=== PATIENT | female | born 1990 | race Caucasian/White ===

== ENCOUNTER 2020-06-02 08:35 | Outpatient (REF) | payer OTHER, SELFPAY ==
[2020-06-02 11:57] LABS: Alanine Aminotransferase 24 U/L (0-31); Albumin Level 4.4 g/dL (3.5-5.0); Alkaline Phosphatase 131 U/L (39-117); Anion Gap 13 (12-20); Aspartate Amino Transferase 21 U/L (5-31); Bilirubin Total 0.6 mg/dL (0.0-1.0); Blood Urea Nitrogen 17 mg/dL (9-16); Calcium 9.1 mg/dL (8.4-10.2); Carbon Dioxide 27 mmol/L (22-29); Chloride 106 mmol/L (96-108); Cholesterol 187 mg/dL; Estimated Glomerular Filt Rate > 60; Glucose Fasting 85 mg/dL (60-99); HDL Cholesterol 61 mg/dL; LDL Cholesterol Calculated 117 mg/dl; Sodium 142 mmol/L (135-145); Total Protein 6.9 g/dL (6.5-8.0); Triglycerides 45 mg/dL
== END 2020-06-02 08:36 | disposition home or self-care (01) ==
LOC: HO.HMGCLDS 08:35
PROVIDERS: PCP Nurse Practitioner Family; Visit Provider Nurse Practitioner Family
DX: E78.5 Hyperlipidemia, unspecified (principal); R79.89 Other specified abnormal findings of blood chemistry
CPT/HCPCS: 36415; 80053; 80061; 84443

== ENCOUNTER 2021-12-29 07:48 | Outpatient (REF) | payer OTHER, SELFPAY ==
[2021-12-31 09:06] LABS: Lyme Abs Screen <0.90 index
== END 2021-12-29 07:49 | disposition home or self-care (01) ==
LOC: HO.HMGCLDS 07:48
PROVIDERS: Visit Provider Internal Medicine
DX: T14.8XXA Other injury of unspecified body region, initial encounter (principal); W57.XXXA Bitten or stung by nonvenomous insect and other nonvenomous arthropods, initial encounter
CPT/HCPCS: 36415; 86617; 86618

== ENCOUNTER 2022-10-05 07:18 | Outpatient (REF) | payer OTHER, SELFPAY ==
[2022-10-05 11:24] LABS: Appearance Urine Clear; Color Urine Yellow; Glucose Urine UA Negative (Negative); Leukocyte Esterase Urine Negative (Negative); Nitrite Urine Positive (Negative); Specific Gravity - Urine 1.025 (1.005-1.025); UMIC TRIGGER UACC YES; Urine Blood Negative (Negative); Urine Ketones Negative (Negative); Urine Protein Negative (Neg-Trace)
[2022-10-05 11:27] LABS: MANUAL DIFF FLAG NO
[2022-10-05 11:37] LABS: Basophils Percent Auto 0.5 % (0-2); Eosinophils Absolute Auto 0.3 X10*3/uL (0.0-0.4); Eosinophils Percent Auto 4.3 % (0-4); Hematocrit 44.4 % (37.0-47.0); Hemoglobin 14.8 g/dl (12.0-16.0); Imm Gran Abs Auto 0.02 X10*3/uL (0.00-0.03); Imm Gran Pct Auto 0.3 % (0.0-0.4); Lymphocytes Absolute Auto 2.9 X10*3/uL (1.2-4.9); Lymphocytes Percent Auto 39.2 % (20-40); Mean Corpuscular HGB Conc 33.3 g/dl (31.0-35.0); Mean Corpuscular Hemoglobin 28.9 pg (27.0-33.0); Mean Corpuscular Volume 86.7 fL (80.0-98.0); Mean Platelet Volume 9.8 fL (9.4-12.3); Monocytes Absolute Auto 0.6 X10*3/uL (0.1-1.2); Monocytes Percent Auto 7.6 % (2-11); Neutrophils Absolute Auto 3.5 x10*3/uL (2.0-8.3); Neutrophils Percent Auto 48.1 % (45-73); Platelet Count 272 X10*3/uL (160-400); Red Blood Count 5.12 X10*6/uL (4.20-5.50); Red Cell Distribution Width 13.2 % (11.0-16.0); White Blood Count 7.4 X10*3/uL (4.8-10.8)
[2022-10-05 11:46] LABS: Bacteria Urine Trace (None Seen); Hyaline Casts Urine 0-2 /LPF (0-2); RBC Urine 0-2 /HPF (0-2); UACC Culture Trigger YES
[2022-10-05 11:58] LABS: Alanine Aminotransferase 22 U/L (0-31); Albumin Level 4.1 g/dL (3.5-5.0); Alkaline Phosphatase 80 U/L (39-117); Anion Gap 14 (12-20); Aspartate Amino Transferase 22 U/L (5-31); Bilirubin Total 0.6 mg/dL (0.0-1.0); Blood Urea Nitrogen 15 mg/dL (9-16); Calcium 9.1 mg/dL (8.4-10.2); Carbon Dioxide 23 mmol/L (22-29); Chloride 108 mmol/L (96-108); Cholesterol 208 mg/dL; Estimated Glomerular Filt Rate > 60; Gamma Glutamyl Transpeptidase 25 U/L (7-33); Glucose Fasting 107 mg/dL (60-99); HDL Cholesterol 56 mg/dL; LDL Cholesterol Calculated 135 mg/dl; Potassium 4.2 mmol/L (3.3-5.1); Sodium 141 mmol/L (135-145); Total Protein 6.5 g/dL (6.5-8.0); Triglycerides 88 mg/dL
[2022-10-09 05:38] LABS: Alk.Phos Iso. Macrohepatic 0 % (<=0); Alk.Phos Isoenzymes Bone 26 % (28-66); Alk.Phos Isoenzymes Intest 0 % (1-24); Alk.Phos Isoenzymes Liver 74 % (25-69); Alk.Phos Isoenzymes Placental 0 % (<=0); Alk.Phos Isoenzymes Total 71 U/L (31-125)
== END 2022-10-05 07:19 | disposition home or self-care (01) ==
LOC: HO.HMGCLDS 07:18
PROVIDERS: Internal Medicine; PCP Nurse Practitioner Family; Visit Provider Nurse Practitioner Family
DX: Z00.00 Encounter for general adult medical examination without abnormal findings (principal); R74.8 Abnormal levels of other serum enzymes; N39.0 Urinary tract infection, site not specified
CPT/HCPCS: 36415; 80053; 80061; 81001; 82977; 84080; 84443; 85025; 87086; 87088; 87186

== ENCOUNTER 2022-10-08 08:48 | Outpatient (REF) | payer OTHER, SELFPAY ==
[2022-10-08 11:35] LABS: Appearance Urine Cloudy; Color Urine Yellow; Glucose Urine UA Negative (Negative); Leukocyte Esterase Urine Trace (Negative); Nitrite Urine Negative (Negative); Specific Gravity - Urine 1.025 (1.005-1.025); UMIC TRIGGER UACC YES; Urine Blood Negative (Negative); Urine Ketones 15 mg/dL (Negative); Urine Protein Negative (Neg-Trace)
[2022-10-08 11:39] LABS: Bacteria Urine Trace (None Seen); Hyaline Casts Urine 0-2 /LPF (0-2); RBC Urine 0-2 /HPF (0-2); UACC Culture Trigger YES
== END 2022-10-08 08:49 | disposition home or self-care (01) ==
LOC: HO.HMGCLDS 08:48
PROVIDERS: PCP Nurse Practitioner Family; Visit Provider Internal Medicine
DX: N39.0 Urinary tract infection, site not specified (principal)
CPT/HCPCS: 81001; 87086

== ENCOUNTER 2023-04-05 08:49 | Outpatient (AMB) | payer OTHER, SELFPAY ==
[2023-04-05 09:17] VITALS: BP 120/72; PULSE 83; O2SAT 99; BMI 36.2
--- NOTE | 2023-04-05 09:17 | A.OFFPC_ITS ---
Vital Signs 04/05/23 09:17 Height 5 ft 3 in Weight 204 lb 4 oz BMI 36.2 BP 120/72 Blood Pressure Location Lt brachial Position Sitting Pulse 83 Pulse Source Pulse Oximeter Pulse Oximetry (%) 99 Oxygen Delivery Method Room Air Intake Visit Reasons: Annual PE Allergies No Known Allergies [No Known Allergies*] Allergy (Verified 04/05/23 09:19) Tobacco use date assessed: 04/05/23 Dental Screening Dental Screen Date: 04/05/23 Did you have a dental visit in the last 12 months?: Yes Did you have a dental problem in the last 6 months where you did not have access to dental care?: No Was dental information given to patient?: Patient has dentist HPI Annual PE HPI Details Pt is here for a PE. Will order labs. Has a color maker. Pt is currently 17 weeks . PFSH Medical History Elevated alkaline phosphatase level Family History Father Mental health disorder Mother Mental health disorder Social History Housing: House Patient Tobacco Use Status: Never used Tobacco e-Cigarette/Vaping Use: Never Used Second Hand Smoke Exposure: No service: No Current occupational status: unemployed Cognitive needs: No Hearing needs: No Vision needs: No Questionnaire Thrive Questionnaire Date Thrive assessed: 06/16/22 I am a: Patient What is your living situation today?: I have a steady place to live Within the past 12 months, did the food you bought not last and you didn't have the money to get more?: Never true Within the past 12 months, did you worry whether your food would run out before you got money to buy more?: Never true AUDIT C Alcohol Use Questionnaire (AUDIT-C) 1. How often do you have a drink containing alcohol?: Never 2. How many drinks containing alcohol do you have on a typical day when you are drinking?: 1 or 2 3. How often do you have six or more drinks on one occasion?: Never Total Score: 0 ANNALEE-7 AMB Questionnaire ANNALEE-7 Date ANNALEE - 7 assessed: 06/16/22 Feeling nervous, anxious, or on edge: 1 = Several days Not being able to stop or control worryin = Not at all Worrying too much about different things: 0 = Not at all Trouble relaxin = Not at all Being so restless that it is hard to sit still: 0 = Not at all Becoming easily annoyed or irritable: 0 = Not at all Feeling afraid as if something awful might happen: 0 = Not at all Total ANNALEE-7 score (0-4 normal; 5-9 mild; 10-14 moderate; 15-21 severe): 1 Source: Developed by Drs. Tyrone Chavarria, Margarita Yusuf, Dre Espana and colleagues, with an educational cecily from [employer]. Review of Systems Const Denies chills and Denies fever(s) Eyes Denies blurry vision ENT Denies vertigo, Denies dizziness and Denies sore throat Card Denies chest pain at rest, Denies chest pain with activity, Denies diaphoresis, Denies dyspnea and Denies dyspnea on exertion Resp Denies cough, Denies dyspnea, Denies dyspnea on exertion and Denies wheezing GI Denies abdominal pain, Denies melena, Denies hematochezia, Denies constipation, Denies diarrhea and Denies loose stools Denies hematuria Musc Denies numbness and Denies tingling Skin/Breast Denies lesions Neuro Denies vertigo, Denies dizziness, Denies numbness and Denies tingling Psych Denies anxiety, Denies depression, Denies homicidal ideation, Denies suicidal ideation and Denies other (substance abuse) Aller/Immun Denies wheezing Physical exam (Primary Care) Vital Signs: Last Vital Signs Pulse 83 04/05/23 09:17 BP 120/72 04/05/23 09:17 Pulse Ox 99 04/05/23 09:17 Oxygen Delivery Method Room Air 04/05/23 09:17 BMI result Body Mass Index 36.2 Tobacco/Smoking Status: Tobacco use Status Tobacco use date assessed 04/05/23 04/05/23 09:21 Patient Tobacco Use Status Never used Tobacco 04/05/23 09:21 e-Cigarette/Vaping Use Never Used 04/05/23 09:21 Thrive Assessment: Date of Thrive Assessment Date Thrive assessed 06/16/22 04/05/23 09:21 Const General: cooperative Nutritional Appearance: well nourished Orientation/consciousness: patient oriented x3 HENMT Head: Yes normal to inspection, Yes normocephalic and Yes atraumatic Ears: TM's normal bilaterally Eyes General: appearance normal, both eyes and all related structures Alignment and Position: alignment normal and position normal Neck Neck: Yes normal visual inspection and Yes no lymphadenopathy Thyroid: Thyroid normal Resp Effort & Inspection: normal respiratory effort Auscultation: clear to auscultation bilaterally Cardio Rate: regular rate Rhythm: regular rhythm Heart sounds: S1 normal heart sound present, S2 normal heart sound present and Murmur heart sound present systolic GI Palpation (GI): Soft to palpation and nontender Auscultation: normal bowel sounds Skin Rashes: no rashes Neuro General: patient oriented x3, moves all extremities, no focal motor deficits and deep tendon reflexes 2+ bilaterally Romberg Test: Negative Psych Appearance: grossly normal Mental Status: mental status grossly normal Speech and movement: Normal speech and movement present Affect: normal affect Attitude: cooperative Thought process: Normal thought process present Thought content: Normal thought content present Insight: Good insight present (Psych) Judgement: Good judgement present (Psych) Assessment and Plan Assessment & Plan (1) Physical exam: Code(s): Z. - Encounter for general adult medical examination without abnormal findings Plan: Labs ordered Plan The patient agreed to the use of a medical economics consultant for this encounter. Scribed for EVA Blanchard by Fabienne Santiago medical economics consultant, on 04/05/2023 at 09:20 EST. Orders: Orders Comprehensive [place]. Panel Fast Today Z00. - Encounter for general adult medical examination without abnormal findings Lipid Panel Today Z00. - Encounter for general adult medical examination without abnormal findings TSH reflex Free T4 Today Z00.00 - Encounter for general adult medical examination without abnormal findings Complete Blood Count Auto Diff Today Z00.00 - Encounter for general adult medical examination without abnormal findings UA CC w/rflx Micro + Cult Today Z00. - Encounter for general adult medical examination without abnormal findings Coding Level of Care Code Est Pt Prev Care 18-39y(08405) Diagnoses Physical exam Z00.00
== END 2023-04-05 09:30 | disposition home or self-care (01) ==
PROVIDERS: Visit Provider Nurse Practitioner Family
DX: Z00.00 Encounter for general adult medical examination without abnormal findings (principal)
CPT/HCPCS: 99395

== ENCOUNTER 2023-04-07 07:11 | Outpatient (REF) | payer OTHER, SELFPAY ==
[2023-04-07 11:33] LABS: MANUAL DIFF FLAG NO
[2023-04-07 11:34] LABS: Appearance Urine Cloudy; Color Urine Yellow; Glucose Urine UA Negative (Negative); Leukocyte Esterase Urine Negative (Negative); Nitrite Urine Negative (Negative); PH 7.5 (5.0-9.0); Urine Blood Negative (Negative); Urine Ketones Trace mg/dL (Negative); Urine Protein Negative (Neg-Trace)
[2023-04-07 11:57] LABS: Basophils Percent Auto 0.2 % (0-2); Eosinophils Absolute Auto 0.2 X10*3/uL (0.0-0.4); Eosinophils Percent Auto 1.9 % (0-4); Hematocrit 40.6 % (37.0-47.0); Hemoglobin 13.8 g/dl (12.0-16.0); Imm Gran Abs Auto 0.04 X10*3/uL (0.00-0.03); Imm Gran Pct Auto 0.5 % (0.0-0.4); Lymphocytes Absolute Auto 2.3 X10*3/uL (1.2-4.9); Lymphocytes Percent Auto 25.7 % (20-40); Mean Corpuscular Volume 85.3 fL (80.0-98.0); Mean Platelet Volume 10.1 fL (9.4-12.3); Monocytes Absolute Auto 0.5 X10*3/uL (0.1-1.2); Monocytes Percent Auto 5.7 % (2-11); Neutrophils Absolute Auto 5.8 x10*3/uL (2.0-8.3); Platelet Count 228 X10*3/uL (160-400); Red Blood Count 4.76 X10*6/uL (4.20-5.50); Red Cell Distribution Width 13.4 % (11.0-16.0); White Blood Count 8.8 X10*3/uL (4.8-10.8)
[2023-04-07 12:47] LABS: Alanine Aminotransferase 21 U/L (0-31); Albumin Level 3.3 g/dL (3.5-5.0); Alkaline Phosphatase 75 U/L (39-117); Anion Gap 11 (12-20); Aspartate Amino Transferase 19 U/L (5-31); Bilirubin Total 0.4 mg/dL (0.0-1.0); Blood Urea Nitrogen 7 mg/dL (9-16); Calcium 8.8 mg/dL (8.4-10.2); Carbon Dioxide 23 mmol/L (22-29); Chloride 108 mmol/L (96-108); Cholesterol 223 mg/dL; Estimated Glomerular Filt Rate > 60; Glucose Fasting 83 mg/dL (60-99); HDL Cholesterol 66 mg/dL; LDL Cholesterol Calculated 137 mg/dl; Potassium 4.2 mmol/L (3.3-5.1); Sodium 138 mmol/L (135-145); Total Protein 6.2 g/dL (6.5-8.0); Triglycerides 103 mg/dL
[2023-04-07 12:49] LABS: TSH reflex Free T4 1.39 uIU/mL (0.32-4.0)
== END 2023-04-07 07:12 | disposition home or self-care (01) ==
LOC: HO.HMGCLDS 07:11
PROVIDERS: PCP Nurse Practitioner Family; Visit Provider Nurse Practitioner Family
DX: Z00.00 Encounter for general adult medical examination without abnormal findings (principal)
CPT/HCPCS: 36415; 80053; 80061; 81003; 84443; 85025

== ENCOUNTER 2023-10-03 08:39 | Outpatient (AMB) | payer OTHER, SELFPAY ==
[2023-10-03 08:44] VITALS: BP 118/70; PULSE 65; O2SAT 99; BMI 36.2
--- NOTE | 2023-10-03 08:44 | A.OFFPC_ITS ---
Vital Signs 10/03/23 08:44 Height 5 ft 3 in Weight 204 lb 2 oz BMI 36.2 BP 118/70 Blood Pressure Location Lt brachial Position Sitting Pulse 65 Pulse Source Pulse Oximeter Pulse Oximetry (%) 99 Oxygen Delivery Method Room Air Intake Visit Reasons: 6 month f/u Intake Note: Pt is here to follow up for Anxiety Allergies No Known Allergies [No Known Allergies*] Allergy (Verified 10/03/23 08:46) Medication List - Last Reconciled 10/03/23 by EVA Pedraza buspirone 5 mg PO BEDTIME 90 days vit no.[id number] 27 mg iron- 800 mcg ( Vitamin) 1 tab PO DAILY Tobacco use date assessed: 10/03/23 Dental Screening Dental Screen Date: 10/03/23 Did you have a dental visit in the last 12 months?: Yes Did you have a dental problem in the last 6 months where you did not have access to dental care?: No Was dental information given to patient?: Patient has dentist HPI 6 month f/u HPI Details Pt has a hx of gestational diabetes. Pt gave approximately 4-5 weeks ago. Denies polyuria, polydipsia, and neuropathy. Will orer labs to assess A1C and fasting blood sugar. [facility] Medical History Elevated alkaline phosphatase level Family History Father Mental health disorder Mother Mental health disorder Social History Housing: House Patient Tobacco Use Status: Never used Tobacco e-Cigarette/Vaping Use: Never Used Second Hand Smoke Exposure: No service: No Current occupational status: unemployed Cognitive needs: No Hearing needs: No Vision needs: No Questionnaire PHQ-9 Over the last 2 weeks, how often have you been bothered by any of the following problems? 1. Little interest or pleasure in doing things: not at all 2. Feeling down, depressed, or hopeless: not at all 3. Trouble falling or staying asleep, or sleeping too much: not at all 4. Feeling tired or having little energy: not at all 5. Poor appetite or overeating: not at all 6. Feeling bad about yourself - or that you are a failure or have let yourself or your family down: not at all 7. Trouble concentrating on things, such as reading the newspaper or watching television: not at all 8. Moving or speaking so slowly that other people could have noticed. Or the opposite - being so fidgety or restless that you have been moving around a lot more than usual: not at all 9. Thoughts that you would be better off or of hurting yourself in some way: not at all Total score: 0 Source: Developed by Drs. Tyrone Chavarria, Margarita Yusuf, Dre Espana and colleagues, with an educational cecily from [employer]. Thrive Questionnaire Date Thrive assessed: 10/03/23 I am a: Patient What is your living situation today?: I have a steady place to live Within the past 12 months, did the food you bought not last and you didn't have the money to get more?: Never true Within the past 12 months, did you worry whether your food would run out before you got money to buy more?: Never true Do you have trouble paying for medicines?: No Do you have trouble getting transportation to medical appointments?: No Do you have trouble paying your heating and electricity bill?: No Do you have trouble taking care of your child, family member or friend?: No Do you have trouble with day-to-day activities such as bathing, preparing meals, shopping, managing finances, etc.?: No Are you currently unemployed and looking for a job?: No Are you interested in more education?: No THRIVE Score: 0 AUDIT C Alcohol Use Questionnaire (AUDIT-C) 1. How often do you have a drink containing alcohol?: Monthly or less 2. How many drinks containing alcohol do you have on a typical day when you are drinking?: 1 or 2 3. How often do you have six or more drinks on one occasion?: Never Total Score: 1 ANNALEE-7 AMB Questionnaire ANNALEE-7 Date ANNALEE - 7 assessed: 10/03/23 Feeling nervous, anxious, or on edge: 1 = Several days Not being able to stop or control worryin = Not at all Worrying too much about different things: 0 = Not at all Trouble relaxin = Not at all Being so restless that it is hard to sit still: 0 = Not at all Becoming easily annoyed or irritable: 0 = Not at all Feeling afraid as if something awful might happen: 0 = Not at all Total ANNALEE-7 score (0-4 normal; 5-9 mild; 10-14 moderate; 15-21 severe): 1 Source: Developed by Drs. Tyrone Chavarria, Margarita Yusuf, Dre Espana and colleagues, with an educational cecily from [employer]. Review of Systems Const Reports as per HPI Physical exam (Primary Care) Vital Signs: Last Vital Signs Pulse 65 10/03/23 08:44 BP 118/70 10/03/23 08:44 Pulse Ox 99 10/03/23 08:44 Oxygen Delivery Method Room Air 10/03/23 08:44 BMI result Body Mass Index 36.2 Tobacco/Smoking Status: Tobacco use Status Tobacco use date assessed 10/03/23 10/03/23 08:48 Patient Tobacco Use Status Never used Tobacco 10/03/23 08:48 e-Cigarette/Vaping Use Never Used 10/03/23 08:48 PHQ-9: PHQ-9 Score PHQ-9: Total score 0 10/03/23 08:55 Thrive Assessment: Date of Thrive Assessment Date Thrive assessed 10/03/23 10/03/23 08:50 Const General: cooperative Orientation/consciousness: patient oriented x3 Resp Effort & Inspection: normal respiratory effort Auscultation: clear to auscultation bilaterally Cardio Rate: regular rate Rhythm: regular rhythm Heart sounds: S1 normal heart sound present and S2 normal heart sound present Neuro General: patient oriented x3 Psych Appearance: grossly normal Mental Status: mental status grossly normal Speech and movement: Normal speech and movement present Affect: normal affect Attitude: cooperative Thought process: Normal thought process present Thought content: Normal thought content present Insight: Good insight present (Psych) Judgement: Good judgement present (Psych) Assessment and Plan Assessment & Plan (1) Gestational diabetes: Code(s): O24.419 - Gestational diabetes mellitus in , unspecified control Plan: Labs ordered Plan The patient agreed to the use of a medical operations supervisor for this encounter. Scribed for EVA Blanchard by idalia Ingram scribe, on 10/03/2023 at 08:50 EST. Orders: Orders UA CC w/rflx Micro + Cult Today O24.419 - Gestational diabetes mellitus in , unspecified control Lipid Panel Today O24.419 - Gestational diabetes mellitus in , unspecified control Complete Blood Count Auto Diff Today O24.419 - Gestational diabetes mellitus in , unspecified control Comprehensive [place]. Panel Fast Today O24.419 - Gestational diabetes mellitus in , unspecified control TSH reflex Free T4 Today O24.419 - Gestational diabetes mellitus in , unspecified control Hemoglobin A1c Today O24.419 - Gestational diabetes mellitus in , unspecified control Coding Level of Care Code Est Pt Level 3 (59395) Diagnoses Gestational diabetes O24.419
== END 2023-10-03 09:03 | disposition home or self-care (01) ==
PROVIDERS: PCP Nurse Practitioner Family; Visit Provider Nurse Practitioner Family
DX: O24.419 Gestational diabetes mellitus in pregnancy, unspecified control (principal)
CPT/HCPCS: 99213

== ENCOUNTER 2023-10-04 08:44 | Outpatient (REF) | payer OTHER, SELFPAY ==
[2023-10-04 11:12] LABS: MANUAL DIFF FLAG NO
[2023-10-04 11:36] LABS: Appearance Urine Clear; Basophils Percent Auto 0.4 % (0-2); Color Urine Yellow; Eosinophils Absolute Auto 0.4 X10*3/uL (0.0-0.4); Eosinophils Percent Auto 4.6 % (0-4); Glucose Urine UA Negative (Negative); Hematocrit 39.7 % (37.0-47.0); Hemoglobin 13.7 g/dl (12.0-16.0); Imm Gran Abs Auto 0.02 X10*3/uL (0.00-0.03); Imm Gran Pct Auto 0.3 % (0.0-0.4); Leukocyte Esterase Urine Small (1+) (Negative); Lymphocytes Absolute Auto 2.3 X10*3/uL (1.2-4.9); Lymphocytes Percent Auto 29.9 % (20-40); Mean Corpuscular HGB Conc 34.5 g/dl (31.0-35.0); Mean Corpuscular Volume 87.1 fL (80.0-98.0); Mean Platelet Volume 9.7 fL (9.4-12.3); Monocytes Absolute Auto 0.4 X10*3/uL (0.1-1.2); Monocytes Percent Auto 5.7 % (2-11); Neutrophils Absolute Auto 4.5 x10*3/uL (2.0-8.3); Neutrophils Percent Auto 59.1 % (45-73); Nitrite Urine Negative (Negative); PH 6.5 (5.0-9.0); Platelet Count 250 X10*3/uL (160-400); Red Blood Count 4.56 X10*6/uL (4.20-5.50); Red Cell Distribution Width 12.9 % (11.0-16.0); UMIC TRIGGER UACC YES; Urine Blood Small (1+) (Negative); Urine Ketones Negative (Negative); Urine Protein Negative (Neg-Trace); White Blood Count 7.6 X10*3/uL (4.8-10.8)
[2023-10-04 11:44] LABS: Bacteria Urine None Seen (None Seen); Hyaline Casts Urine 0-2 /LPF (0-2); UACC Culture Trigger YES
[2023-10-04 11:47] LABS: Estimated Average Glucose 100 mg/dL; Hemoglobin A1c % 5.1 % (<6.0)
[2023-10-04 12:02] LABS: Alanine Aminotransferase 24 U/L (0-31); Albumin Level 3.9 g/dL (3.5-5.0); Alkaline Phosphatase 92 U/L (39-117); Anion Gap 13 (12-20); Aspartate Amino Transferase 24 U/L (5-31); Bilirubin Total 0.4 mg/dL (0.0-1.0); Blood Urea Nitrogen 15 mg/dL (9-16); Calcium 9.1 mg/dL (8.4-10.2); Carbon Dioxide 25 mmol/L (22-29); Chloride 106 mmol/L (96-108); Cholesterol 236 mg/dL (<200); Estimated Glomerular Filt Rate > 60; Glucose Fasting 90 mg/dL (60-99); HDL Cholesterol 72 mg/dL (>40); LDL Cholesterol Calculated 155 mg/dL (<100); Potassium 4.1 mmol/L (3.3-5.1); Sodium 140 mmol/L (135-145); Total Protein 6.7 g/dL (6.5-8.0); Triglycerides 46 mg/dL (<150)
[2023-10-04 13:23] LABS: TSH reflex Free T4 0.82 uIU/mL (0.32-4.0)
== END 2023-10-04 08:45 | disposition home or self-care (01) ==
LOC: HO.HMGCLDS 08:44
PROVIDERS: PCP Nurse Practitioner Family; Visit Provider Nurse Practitioner Family
DX: O24.419 Gestational diabetes mellitus in pregnancy, unspecified control (principal)
CPT/HCPCS: 36415; 80053; 80061; 81001; 83036; 84443; 85025; 87086

== ENCOUNTER 2023-11-28 09:31 | Outpatient (AMB) | payer OTHER, SELFPAY ==
[2023-11-28 09:52] VITALS: BP 120/72; PULSE 74; TEMP 36.6; O2SAT 98; BMI 37.2
--- NOTE | 2023-11-28 09:52 | AM.OFFWIN_ITS ---
Intake Vital Signs 11/28/23 09:52 Height 5 ft 3 in Weight 210 lb BMI 37.2 BP 120/72 Blood Pressure Location Lt brachial Position Sitting Pulse 74 Pulse Source Pulse Oximeter Temp 97.9 F Pulse Oximetry (%) 98 Oxygen Delivery Method Room Air Intake Visit Reasons: EP Throat/Ear pain Intake Note: pt is here today for throat pain started 1 week ago Patient Tobacco Use Status: Never used Tobacco Allergies No Known Allergies [No Known Allergies*] Allergy (Verified 11/28/23 10:00) Do you need a note to return to daycare/school/sports/work: No HPI HPI Comments History of Present Illness Details Patient presents to the walk-in today for sick visit Reports 1 week of sinus congestion, bilateral ear pain right worse than the left hand sore throat Two children at home pulse sick with the same Patient is her 3-month-old She denies fevers, chills, nausea, vomiting, diarrhea, chest pain, shortness of breath, palpitations, cough, dizziness, weakness 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 [facility] Medical History Elevated alkaline phosphatase level Family History Father Mental health disorder Mother Mental health disorder Social History Housing: House Patient Tobacco Use Status: Never used Tobacco e-Cigarette/Vaping Use: Never Used Second Hand Smoke Exposure: No service: No Current occupational status: unemployed Cognitive needs: No Hearing needs: No Vision needs: No Review of Systems Const All systems reviewed & are unremarkable except as noted in HPI and below Physical Exam Vital Signs: Last Vital Signs Temp 97.9 F 11/28/23 09:52 Pulse 74 11/28/23 09:52 BP 120/72 11/28/23 09:52 Pulse Ox 98 11/28/23 09:52 Oxygen Delivery Method Room Air 11/28/23 09:52 BMI result Body Mass Index 37.2 General: awake, alert, oriented. Answers questions appropriately. Fully engaged in examination. Skin: warm, dry, intact HEENT: Normocephalic. Hearing intact. Right TM erythematous, cloudy. Left TM normal to visual inspection. Positive sinus congestion. Posterior pharynx without erythema or exudate Cardiac: External chest normal in appearance. RRR Respiratory: No cough, audible wheezing or stridor. Lung sounds clear to auscultation bilaterally Abdomen: without gross distension. MS: No obvious swelling or deformities. Neurological: Oriented to person, place, time and situation. Thought process intact. Psychiatric: Appropriate mood and affect. Good judgment and insight. Results AMB Rapid Strep AMB Rapid Strep Negative Last Edit by Hasmukh Valdez MA on 11/28/23 10:28 Results Reviewed Results Reviewed: Rapid strep negative Assessment & Plan Assessment & Plan (1) Otitis media, right: Code(s): H66.91 - Otitis media, unspecified, right ear Plan Amoxicillin 500 mg p.o. daily x7 days. Patient advised this is considered order the safe for antibiotics to take while . It is present in breast milk therefore she discuss with her OB or forepart rasper prior to taking this antibiotic. Advised that no medications are 100% safe to take while or . May cause the baby to have side effects including rash or diarrhea. Drink plenty of fluids, avoid getting anything in the ear, tylenol/motrin as needed. All questions and concerns were addressed during the visit, patient agrees with the plan. Follow up with pcp or in walkin for any new or worsening symptoms. Medications: New amoxicillin 500 mg PO TID 7 days 21 caps 0RF Coding Level of Care Code Est Pt Level 3 (35642) Diagnoses Otitis media, right H66.91
== END 2023-11-28 10:51 | disposition home or self-care (01) ==
PROVIDERS: PCP Nurse Practitioner Family; Visit Provider Registered Nurse Emergency
DX: H66.91 Otitis media, unspecified, right ear (principal)
CPT/HCPCS: 99213

== ENCOUNTER 2024-09-17 13:49 | Outpatient (AMB) | payer OTHER, SELFPAY ==
--- NOTE | 2024-09-17 14:11 | AM.OFFWIN_ITS ---
Intake Vital Signs 09/17/24 14:15 Weight 212 lb BP 124/80 Blood Pressure Location Rt brachial Position Sitting Pulse 91 Pulse Source Pulse Oximeter Temp 98.1 F Temp Source Oral Pulse Oximetry (%) 98 Oxygen Delivery Method Room Air Intake Visit Reasons: EP cough, chest discomfort Intake Note: Patient here for cough and chest discomfort that has been present for 1 week. Patient Tobacco Use Status: Never used Tobacco Allergies No Known Allergies [No Known Allergies*] Allergy (Verified 09/17/24 14:15) Do you need a note to return to daycare/school/sports/work: No HPI HPI Comments History of Present Illness Details 33 y/o female patient who presents to [facility] walk in clinic with c/o URI symptoms for 1 week. [facility] Medical History (Updated 09/17/24 @ 14:25 by Lisandra Darnell NP) Acute respiratory disease Elevated alkaline phosphatase level Family History Father Mental health disorder Mother Mental health disorder Social History Housing: House Patient Tobacco Use Status: Never used Tobacco e-Cigarette/Vaping Use: Never Used Second Hand Smoke Exposure: No service: No Current occupational status: unemployed Cognitive needs: No Hearing needs: No Vision needs: No Review of Systems Const All systems reviewed & are unremarkable except as noted in HPI and below Physical Exam Vital Signs: Last Vital Signs Temp 98.1 F 09/17/24 14:15 Pulse 91 09/17/24 14:15 BP 124/80 09/17/24 14:15 Pulse Ox 98 09/17/24 14:15 Oxygen Delivery Method Room Air 09/17/24 14:15 Const General: cooperative and no acute distress Nutritional Appearance: overweight Orientation/consciousness: patient oriented x3 HEENT Head: Yes normocephalic Ears: external ears normal and TM abnormal with fluid behind the TM bilateral General nose exam: No nasal discharge present Face and sinus: Yes sinuses nontender Mouth: moist mucous membranes Resp Effort & Inspection: normal respiratory effort and able to speak in complete sentences Auscultation: clear to auscultation bilaterally, no crackles, no rales, no rhonchi and no wheezes Cardio Heart sounds: S1 normal heart sound present and S2 normal heart sound present Neuro General: patient oriented x3 Assessment & Plan Assessment & Plan (1) Acute respiratory disease: Code(s): J06.9 - Acute upper respiratory infection, unspecified Plan: Ordered SARs Ordered Z-Pack OTC cold remedies Acetaminophen for pain relief. Orders: Orders SARS-CoV2/FLU/RSV Today R09.89 - Other specified symptoms and signs involving the circulatory and respiratory systems Medications: New azithromycin 500 mg PO DAILY 3 days 3 tabs 0RF J06.9 - Acute upper respiratory infection, unspecified Coding Level of Care Code Est Pt Level 3 (69857) Diagnoses Acute respiratory disease J06.9 Time Spent (min) 15
[2024-09-17 14:15] VITALS: BP 124/80; PULSE 91; TEMP 36.7; O2SAT 98
== END 2024-09-17 14:33 | disposition home or self-care (01) ==
PROVIDERS: PCP Nurse Practitioner Family; Visit Provider Nurse Practitioner Family
DX: J06.9 Acute upper respiratory infection, unspecified (principal)

== ENCOUNTER 2024-09-17 13:49 | Outpatient (REF) | payer OTHER, SELFPAY ==
[2024-09-17 17:04] LABS: Influenza A PCR NEGATIVE (Negative); Influenza B PCR NEGATIVE (Negative); Resp Syncy Virus RNA Qual PCR NEGATIVE (Negative); SARS COV2 PCR INHOUSE NEGATIVE (Negative)
== END 2024-09-17 13:50 | disposition home or self-care (01) ==
LOC: HO.LAB 13:49
PROVIDERS: PCP Nurse Practitioner Family; Visit Provider Nurse Practitioner Family
DX: J06.9 Acute upper respiratory infection, unspecified (principal); R09.89 Other specified symptoms and signs involving the circulatory and respiratory systems
CPT/HCPCS: 0241U; 99212

== ENCOUNTER 2025-05-03 08:48 | Outpatient (REF) | payer OTHER, SELFPAY ==
--- OUTSIDE RECORDS SUMMARY | 2025-05-03 09:20 | XMS_ITS | Clinical Summary ---
Author Organization [employer] Address [address] [place] [address] Care Team Providers Care Rail Setter Name Role Phone Unavailable Primary Care Provider Unavailabl e Social History Tobacco Use Types Packs/Day Years Used Date Smoking Tobacco: Never Assessed Comments Unknown Sex and Gender Information Value Date Recorded Sex Assigned at Female 06/28/2022 10:22 AM EDT Legal Sex Female 10:22 AM EDT Gender Identity Female 06/28/2022 10:22 AM EDT Sexual Orientation Straight 06/28/2022 10 :22 AM EDT Plan of Treatment Health Maintenance Due Date Last Done Comments Depression Screening 1988 Disability Screening 1988 Alcohol/Substance Use Screening 2000 Tobacco Screening 2000 Family Planning (PISQ) 2003 HPV Vaccines (1 - 3-dose series) 2003 DTaP/Tdap/Td Vaccines (1 - Tdap) 2007 Hepatitis B Vaccines (1 of 3 - 19+ 3-dose series) 2007 Pap Smear 2009 Cervical Cancer Screening 2018 HPV/Cotest 2018 COVID-19 Vaccine (1 - 2023-2 5 season) 2024 Influenza Vaccine (#1) 2025 Zoster Vaccines (1 of 2) 2038 RSV Patients and Pa tients Aged 60 years or older (1 - 1-dose 75+ series) 2063 HIB Vaccines Aged Out No longer eligi ble based on patient's age to complete this topic Hepatitis A Vaccines Aged Out No long er eligible based on patient's age to complete this topic IPV Vaccines Aged Out No longer eligi ble based on patient's age to complete this topic Meningococcal B Vaccine Aged Out No l onger eligible based on patient's age to complete this topic Meningococcal Vaccine Aged Out No roya jeovany eligible based on patient's age to complete this topic Pneumococcal Vaccine: Pediat rics (0 to 5 Years) and At-Risk Patients (6 to 49) Years Aged Out No longer eligible b ased on patient's age to complete this topic RSV under 20 months Aged Out No longe r eligible based on patient's age to complete this topic Rotavirus Vaccines Aged Out No longer eligible based on patient's age to complete this topic
--- OUTSIDE RECORDS SUMMARY | 2025-05-03 09:20 | XMS_ITS | Encounter Summary ---
Author Organization [employer] Address [address] [place] [address] Care Team Providers Care Directory Carrier Name Role Phone Unavailable Primary Care Provider Unavailabl e Encounter Details Date Type Department Care Team (Latest Contact Info) Description 06/06/2019 Abstract [facility] CONVERSIONS Dental, Provider, DDS Social History Tobacco Use Types Packs/Day Years Used Date Smoking Tobacco: Never Assessed Comments Unknown Sex and Gender Information Value Date Recorded Sex Assigned at Female 06/28/2022 10:22 AM EDT Legal Sex Female 10:22 AM EDT Gender Identity Female 06/28/2022 10:22 AM EDT Sexual Orientation Straight 06/28/2022 10 :22 AM EDT documented as of this encounter Plan of Treatment Not on file documented as of this encounter Visit Diagnoses Not on filedocumented in this encounter
--- NOTE | 2025-05-03 10:48 | MHC.AU.HA1 ---
Hearing Aid Evaluation Date of Visit: 05/03/25 Historical Information: Description of Hearing: Moderately severe rising to mild at 4kHz mixed hearing loss sloping to moderately severe at 8kHz Ad, within normal As. Current personal amplification information, if applicable: None Summary: Recent eval and medical clearance from ENT. Reports longstanding hearing issues with right ear. Reports problem with cyst, had removal in 2018 but hearing was not significantly improved. ENT recently advised she could try surgery again or try hearing aid. Zenia reports she would like to try hearing aid and may consider surgery again in the future but does not want to go through it at this time. Discussed benefits and limitations of amplification. Recommended RITE style. Will try with dome and discussed possible need for custom EM. Zenia selected rechargeable. 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
== END 2025-05-03 08:49 | disposition home or self-care (01) ==
LOC: HO.HAP 08:48
PROVIDERS: Visit Provider Otolaryngology
DX: Z46.1 Encounter for fitting and adjustment of hearing aid (principal); H90.71 Mixed conductive and sensorineural hearing loss, unilateral, right ear, with unrestricted hearing on the contralateral side
CPT/HCPCS: 92590

== ENCOUNTER 2025-05-31 08:12 | Outpatient (REF) | payer OTHER, SELFPAY ==
--- NOTE | ~2025-05-31 | XR_ITS ---
EXAMINATION: XR HAND 3 OR MORE VIEWS LEFT HISTORY: S60.222A - Contusion of left hand, initial encounter COMPARISON: There are no prior studies available for comparison. FINDINGS: Three views of the left are submitted. Osseous mineralization is normal. There is no fracture or dislocation. The joint spaces are preserved. The soft tissues are unremarkable. XR/XR hand LT min 3V IMPRESSION: Unremarkable examination of the left hand. Electronically signed by: Tyrone Meza MD 05/31/2025 09:07 AM EDT
== END 2025-05-31 08:13 | disposition home or self-care (01) ==
LOC: HO.HMGCX 08:12
PROVIDERS: PCP Nurse Practitioner Family; Visit Provider Physician Assistant
DX: S60.222A Contusion of left hand, initial encounter (principal); M79.89 Other specified soft tissue disorders; M79.642 Pain in left hand; V48.1XXA Car passenger injured in noncollision transport accident in nontraffic accident, initial encounter
CPT/HCPCS: 73130; 99212

== ENCOUNTER 2025-05-31 08:12 | Outpatient (AMB) | payer OTHER, SELFPAY ==
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
[2025-05-31 08:15] VITALS: BP 128/72; PULSE 93; RESP 16; TEMP 36.5; O2SAT 98; BMI 40.6
--- OUTSIDE RECORDS SUMMARY | 2025-05-31 08:26 | XMS_ITS | Encounter Summary ---
Author Organization [employer] Address [address] [place] [address] Care Team Providers Care Heel Room Supervisor Name Role Phone Unavailable Primary Care Provider Unavailabl e Encounter Details Date Type Department Care Team (Latest Contact Info) Description 06/06/2019 Abstract [facility] CONVERSIONS Dental, Provider, DDS Social History [...]
--- OUTSIDE RECORDS SUMMARY | 2025-05-31 08:26 | XMS_ITS | Clinical Summary ---
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
== END 2025-05-31 09:29 | disposition home or self-care (01) ==
PROVIDERS: PCP Nurse Practitioner Family; Visit Provider Physician Assistant
DX: S60.222A Contusion of left hand, initial encounter (principal)

== ENCOUNTER → 2025-05-31 08:47 | Outpatient (BNV) | payer OTHER, SELFPAY | PROVIDERS: PCP Nurse Practitioner Family; Visit Provider Radiology Diagnostic Radiology | DX: S60.222A Contusion of left hand, initial encounter (principal) | CPT/HCPCS: 73130 ==

== ENCOUNTER 2025-06-18 12:55 | Outpatient (REF) | payer OTHER, SELFPAY ==
--- NOTE | 2025-06-18 13:48 | MHC.AU.HA2 ---
Hearing Instrument Fitting- Adult- Binaural Date of Visit: 06/18/25 Hearing Instruments Dispensed: Right Ear: Make, Model, Color, Serial Number: Marian Davis [id number] SN: [id number] Color: Sand Beige Direct Selling Counselor Repair Warranty: 06/01/2028 Direct Selling Counselor Loss and Damage Warranty: 06/01/2028 [facility] Service Plan: 06/18/2026 Battery Size: Rechargeable Sod Farmer/Slim Tube: 0M Earmold/Dome/CShell/SlimTip: Small vented dome (no retention tail) Type of Wax Guard: CeruStop Accessories/Assistive Technology: Phonak Jewel Bearing Facer NATHAN SN: [id number] Summary of Fitting: Ran feedback analyzer and real ear measures. Decreased to 90% gain level due to loudness, with goal to increase to 100% at follow up. Discussed care, use, and rechargeability including manually turning on/off, VC use, changing domes and wax guards. Emphasized importance of daily, consistent use in acclimating to CORRALES. Practiced insertion and removal. Did not discuss bluetooth. Recommendations: A hearing instrument follow-up was scheduled. Recommendations (Other): Diagnosis Code(s): H90.11 ConductiveHL Unilateral Right Ear, W/Unrestricted Contralateral Signature: Provider: Mary Jo Jacob, [facility]
--- OUTSIDE RECORDS SUMMARY | 2025-06-18 16:32 | XMS_ITS | Data Portability ---
Author Organization [place] - [facility], Allergy Address [address] [facility] [address] [place] [phone] Care Team Providers Care Hose Maker Name Role Phone MARYJANEGREGNEL Duarte Primary Care Provider Assessment Encounter Date Assessment Date Assessment LastModified by Organization Details LastModified Time 02/11/2025 02/11/2025 Patient with history of right-sided first stage cholesteatoma surgery who neglected to schedule her second stage. She has a retraction pocket in the attic region which is extending beyond the limits of view, but fortunately does not appear to have gross cholesteatoma formation. There is no sign of middle ear cholesteatoma. Her audiogram shows persistent significant conductive hearing loss primarily in the low and mid frequencies. Recommend CAT scan of the temporal bones to assess for recurrent or persistent cholesteatoma. Will arrange this for her and see her back after it is completed. We did review her audiogram which shows that she could potentially benefit from revision ossiculoplasty versus use of a hearing aid to remedy the conductive hearing loss. Because of the deep retraction of the right ear would recommend dry ear precautions for the right ear particularly when submerging the head underwater. [email or web address] Not available 02/11/2025 16:09:28 04/25/2025 04/25/2025 CAT scan of the temporal bones today shows well-healed intact canal wall mastoidectomy cavity with no signs of recurrent cholesteatoma. The deep retraction noted on physical exam appears to be a thin membranous pocket without debris collection. The previously placed ossiculoplasty prosthesis is in the proper position, though subtle displacement of the prosthesis tip cannot be ruled out which would explain the significant residual conductive component of the hearing loss on the right. In light of the absence of debris collection within the retraction, I think we can continue with observation and dry ear precautions. With regards to her hearing loss we discussed the options of amplification versus revision ossiculoplasty. We discussed the pros and cons of each of these. After full discussion the patient would be interested in learning more about amplification. I given her a copy of her audiogram and a list of [facility] hearing aid provider so that she can pursue this at her convenience. Not available 04/25/2025 15:15:56 Plan of Treatment Reminders Order Date Submit Date Provider Last Modified By Organization Details Last Modified Time Details Appointments Establish ed 10 2025 09:40A M FRANCOIS BETHEA MD Not available Not available Not available Lab None recorded. Referral None recorded. Procedures None recorded. Surgeries None recorded. Imaging CT, temporal bone, w/o contrast - Xoran or send out 2024 025 [email or web address] Not available 02/11/2025 16:23:00 Medication Orders None recorded. Patient TargetsNo targets recorded. Patient InstructionsNo instructions recorded. Reason for Referral None Reported. Results Created Date Observation Date Name Description Value Unit Range Abnormal Flag Note LastModifiedBy Organization Detail LastModifiedTime 02/13/20 audio gram No observ ation record ed. BARCODE Not Available 2024 09:19:28 05/30/20 25 04/25/2025 CT, tempo ral bone, w/o contr ast No observ ation record ed. [email or web address] [facility] [address], [place], [address], 06/03/2025 13:19:19 Result Notes None recorded. Problems Name Problem SNOMED Code Status Onset Date Resolution Date Notes Provider Name and Address Organization Details Recorded Time Mixed conducti ve and sensorin eural hearing loss of right ear 44474266588 105 Active 2015 Mixed conducti ve and sensorin eural hearing loss, unilater al, right ear, with unrestri cted hearing on the contrala teral side; Note: Date Diagnose d: 6 10:05 AM (H90.71) Not Available [facility] 4 02:13:02 Benign neoplasm of lip, oral cavity and pharynx 573608185 Active 2015 Benign neoplasm of lip, oral cavity, and pharynx; Note: Date Diagnose d: 6 12:03 PM (210) Not Available [facility] 4 02:13:11 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 , bilatera l; Note: Date Diagnose d: 6 10:23 AM (H74.03) Not Available [facility] 4 02:15:25 Conducti ve hearing loss 46933381 Active 2015 Conducti ve hearing loss, unilater al, right ear, with unrestri cted hearing on the contrala teral side; Note: Date Diagnose d: 6 10:23 AM (H90.11) Not Available [facility] 4 02:14:53 Lesion of oral mucosa 71847826072 87832 Completed 201503/30/2024 Other lesions of oral mucosa; Note: Date Diagnose d: 6 8:34 AM (K13.79) Not Available [facility] 4 02:14:04 Benign neoplasm of mouth region 605489929 Active 2015 Benign neoplasm of lip, oral cavity, and pharynx: Oral cavity NOS; Note: Date Diagnose d: 6 8:35 AM (210.4) Benign neoplasm of other parts of mouth; Note: Date Diagnose d: 6 12:04 PM (D10.39) ; Start Date : 04/19/20 16 Not Available [facility] 4 02:13:02 Partial loss of ear ossicles 07782312 Active 2015 Partial loss of ear ossicles , right ear; Note: Date Diagnose d: 6 12:18 PM (H74.321 ) Not Available [facility] 4 02:15:14 Choleste atoma of right mastoid 87396956721 54501 Active 2017 Choleste atoma of mastoid, right ear; Note: Date Diagnose d: 06/07/20 18 10:27 AM (H71.21) Not Available [facility] 4 02:14:13 Follow-u p visit Active 2017 Medical surveill catrachita ochoa complete d treatmen t; Note: Date Diagnose d: 06/14/20 18 9:50 AM (Z09) Not Available [facility] 4 02:13:11 Disorder of right Eustachi an tube 58338941443 84639 Active 2018 Other specifie d disorder s of Eustachi an tube, right ear; Note: Date Diagnose d: 11/30/2018 10:53 AM (H69.81) Not Available [facility] 4 02:13:55 Mixed conducti ve and sensorin eural hearing loss of right ear with normal hearing on left side 9677188317 Active 2024 DMITRY REAL [address] [place] [address],[place] [address], [place], [address] , [facility] - [facility] 5 15:44:28 Adhesive otitis media of right middle ear 10321944234 30696 Active 2024 FRANCOIS BETHEA MD [address] [place] [address],[place] [address], [place], [address] , [facility] 5 16:05:02 Problem Notes None recorded. Procedures Surgical History Date Name Laterality Status Provider Name and Address Organization Details Recorded Time 5 CT temporal bones - Xoran completed FRANCOIS BETHEA MD [address] [place] [address],[place] [address], [place], [address], [facility] 04/25/2025 14:25:27 5 Comp Audio with Tymps - 20291 & 90715 completed DMITRY REAL [address] [place] [address],[place] [address], [place], [address], [facility] 02/11/2025 15:43:39 Imaging Results None recorded. Procedure Notes None recorded. Medical Equipment None Reported. Allergies Allergen ID Allergen Name Allergen Category Reaction Reaction Severity Criticality Documentation Date Start Date Code Code System Note Provider Name and Address Organization Details Recorded Time 584227 ethinyl estradiol / levonorge strel medicatio n Not available Not available Not available 02/11/2025 87204 8 RxNorm Janet vidal [place] - [facility] 15:26:29 Medications Name Sig Start Date Stop Date Status Note LastModified by Organization Details LastModified Time buspirone 5 mg tablet TAKE 1 TABLET BY MOUTH AT BEDTIME active Not Available Not Available No t Available prednison e 10 mg tablet TAKE 5 TABLET (ORAL) DAILY FOR 5 DAYS 02/10 completed Not Available Not Available Not Available cetirizin e 10 mg tablet 02/10 completed Medicati on ID: [id number] D uration Value: 30 Brand Name: cetirizi ne Send Method: E-Prescr ibed Sub s Allowed: subs OK Speci al Instruct ion: TK 1 T PO QD Medic ationGen ericName : cetirizi ne Not Available Not Available Not Available hydrocodo ne 5 mg-acetam inophen 325 mg tablet 02/10 completed Medicati on ID: [id number] D uration Value: 7 Brand Name: hydrocod one-acet aminophe n Send Method: E-Prescr ibed Sub s Allowed: subs OK Speci al Instruct ion: TK 1 TO 2 TS PO Q 6 H PRN P Medica tionGene ricName: hydrocod one-acet aminophe n Not Available Not Available Not Available Ciloxan 0.3 % eye drops 02/10 completed Medicati on ID: [id number] D uration Value: 10 Prescri bed By Name: JACKSON Barrera nd Name: Ciloxan Send Method: E-Prescr ibed Sub s Allowed: subs OK Speci al Instruct ion: Instill 4 drops twice a day into the affected ear Medi cationGe nericNam e: Ciloxan Not Available Not Available Not Available ofloxacin 0.3 % ear drops 3 drop 02/10 completed Medicati on ID: [id number] D uration Value: 14 Prescri bed By Name: BONIFACIO Jerry nd Name: ofloxaci n Send Method: E-Prescr ibed Sub s Allowed: subs OK Medic ationGen ericName : ofloxaci n Not Available Not Available Not Available triamcino lone acetonide 0.1 % topical ointment APPLY A THIN LAYER TO THE AFFECTED AREA OF BUTTOCKS BY TOPICAL ROUTE ONCE PER DAY FOR 1-3 WEEKS 02/10 completed Not Available Not Available Not Available nystatin 100,000 unit/gram topical powder APPLY TO AFFECTED AREA TWICE A DAY 04/23 completed Not Available Not Available Not Available scopolami ne 1 mg over 3 days transderm al patch Apply 1 patch to skin single dose 02/10 completed Medicati on ID: [id number] D uration Value: 1 Prescri bed By Name: Syed Burrows nd Name: scopolam ine base Sen d Method: E-Prescr ibed Sub s Allowed: subs OK Speci al Instruct ion: Apply to hairless area behind left ear the night before surgery Medicati onGeneri cName: scopolam ine base Not Available Not Available Not Available ketoconaz ole 2 % topical cream APPLY TO THE AFFECTED AREA OF BUTTOCKS BY TOPICAL ROUTE ONCE DAILY FOR 1-3 WEEKS 02/10 completed Not Available Not Available Not Available amoxicill in 875 mg-potass ium clavulana te 125 mg tablet TAKE 1 TABLET BY MOUTH TWICE A DAY FOR 7 DAYS 02/10 completed Not Available Not Available Not Available Levora-28 0.15 mg-0.03 mg tablet 02/10 completed Medicati on ID: [id number] D uration Value: 28 Brand Name: Levora-2 8 Send Method: E-Prescr ibed Sub s Allowed: subs OK Speci al Instruct ion: TK 1 T PO QD Medic ationGen ericName : Levora-2 8 Not Available Not Available Not Available Vitamin 27 mg iron-0.8 mg tablet TAKE 1 TABLET BY MOUTH EVERY DAY 04/23 completed Not Available Not Available Not Available azithromy tip 500 mg tablet TAKE 1 TABLET BY MOUTH EVERY DAY FOR 3 DAYS 02/10 completed Not Available Not Available Not Available levocetir izine 5 mg tablet TAKE 1 TABLET BY MOUTH EVERY DAY active Not Available Not Available No t Available Vitals None Recorded Social History Question Answer Notes LastModified by Organizat ion Details LastModified Time Tobacco Smoking Status Never Smoker Janet vidal [place] - [facility] 02/11/2025 15:26:40 How Many Years Have You Consumed Alcohol? 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 [employer] [email or web address] Information not available 02/11/2025 How Many Alcoholic Drinks Do You Consume Per Day On Average? 0 [email or web address] Information not available 02/11/2025 Do You Have Any Pets? Yes [email or web address] Information not available 02/11/2025 Are You Passively Exposed To Smoke? No Information not available 02/11/2025 Are There Any Smokers In Your House? No [email or web address] Information not available 02/11/2025 Sex: Unknown Functional Status Question Answer Note LastModified by Organization Details LastModified Time How many times per week do you consume alcohol? 1-2 times per week [email or web address] Information not available 02/11/2025 Do you use any illicit or recreational drugs? No [email or web address] Information not available 02/11/2025 Do you or have you ever used any other forms of tobacco or nicotine? No Information not available 02/11/2025 What is your level of alcohol consumption? Occasional [email or web address] Information not available 02/11/2025 What type of noise exposure are you exposed to? noExposureToExcessiveNoise [email or web address] Infor mation not available 02/11/2025 Mental Status None recorded. Family History Nothing Reported. Medical History Condition Response Tonsil Infections N Emphysema N Glaucoma N Depression N COPD N Nasal or Sinus Problems Y Anesthesia Complications Y Arthritis N Hearing Loss Y Cancer N Stroke N High Cholesterol N Liver Disease N Headaches Y Fibromyalgia N Speech Delay N Kidney Disease N Allergies/Hayfever N Heart Problems N Anxiety Y Migraines N Thyroid Problems N Developmental Delay N Anemia N Immune System Disorder N Heart Attack (TN) N Other Skin Condition N Diabetes N Rhinitis N Bleeding Disorder N Food Allergy N Hyperlipidemia N Dementia N Nasal polyps N Asthma N Sleep Disorder N GERD/Reflux N Hypertension N Gynecological HistoryNo gynecological history recorded. Obstetrics History GPAL:G 0 P 0 0 0 0 Past Encounters Encounter ID Performer Location Encounter Start Date Encounter Closed Date Diagnosis/Indication Diagnosis SNOMED-CT Code Diagnosis ICD10 Code Diagnosis IMO Codes Diagnosis Note [id number] FRANCOIS BETHEA MD [facility] [address] [address] 02/11/2025 15:03:26 02/11/2025 16:22:59 Mixed conductive and sensorineural hearing loss of right ear with normal hearing on left side 2804877217 H90.71 [id number] Audiologic al evaluation results: 02/11/2025 Right ear: Moderate rising to mild sloping to moderate mixed hearing loss with excellent word recognitio n. Left ear: Normal hearing with excellent word recognitio n. Tympanomet ry: Right Ear:Type A Left Ear:Type A Partial lo ss of ear ossicles 19971209 H74.321 Adhesive o titis media of right middle ear 7358743030 505403 H74.11 [id number] FRANCOIS BETHEA MD [facility] [address] [address] 04/25/2025 13:55:23 04/25/2025 15:14:31 Mixed conductive and sensorineural hearing loss of right ear with normal hearing on left side 5185046310 H90.71 50779529 Partial lo ss of ear ossicles 80487456 H74.321 Adhesive o titis media of right middle ear 7557808299 719614 H74.11 0676114 Health Concerns Section Related Observation LastModified by Organization Detai ls LastModified Time None Recorded Concern Status LastModified by Organization Details LastModified Time None Recorded Advance Directives Directive None Recorded Payers Insurance Date Sequence Insurance Name Policy Number Policy Fernando Covered Member ID Fernando Member ID Guarantor Name 12/18/2024 1 [employer] [employer] (MEDICAID HMO) Zenia Katz [id number] Zenia Estrada 04/22/2025 1 [employer] (MEDICAID HMO) CAMELIA Estrada [id number] Zenia Estrada Notes Date Note Type Note Provider Name and Address Organization Details Recorded Time 02/11/2025 text/html 34-year-old female who had first stage right sided cholesteatoma surgery back in May 2018. Patient was seen postoperatively in November 2018 at which point she was noted to have a new retraction in the posterior superior quadrant concerning for formation of new cholesteatoma. At that visit I recommended we proceed with second stage surgery to evaluate for recurrent cholesteatoma, revision ossiculoplasty and concurrent balloon dilation of the eustachian tube. We initiated the scheduling process for surgery at that time, but it was never scheduled. Patient had 2 children around that time which precluded returning for follow-up.Patient reports that over the past 5 years since her last visit, she has had 2 episodes of pain and discharge, the last episode was about a month ago. This was treated with antibiotics by mouth. No current discharge. Patient does notice that the hearing is better now than it was right after surgery, but is still not as good as the left ear. FRANCOIS BETHEA MD [address] [place] [address], [phone], [place] - [facility] 02/11/2025 16:09:45 04/25/2025 text/html Patient who had first stage cholesteatoma surgery in 2017 but was lost to follow-up thereafter. Patient last seen back in January at which point she had a retraction pocket in the attic region which was extending beyond the limits of view but did not appear to have gross cholesteatoma formation. She comes in today for CAT scan of the temporal bones to assess for recurrent or persistent cholesteatoma and to assess candidacy for ossiculoplasty to remedy the underlying conductive hearing loss. No recent pain or discharge. She has been maintaining dry ear precautions and has not had any issues with recurrent infection. FRANCOIS BETHEA MD [address] [place] [address],[address], [phone], [facility] 04/25/2025 15:16:49 OBGyn Episode No OBEpisode recorded.
--- OUTSIDE RECORDS SUMMARY | 2025-06-18 16:32 | XMS_ITS | Encounter Summary ---
Author Organization [employer] Address [address] [place] [address] Care Team Providers Care Extruder Name Role Phone Unavailable Primary Care Provider Unavailabl e Encounter Details Date Type Department Care Team (Latest Contact Info) Description 06/06/2019 Abstract [facility] CONVERSION[facility] Dental, Provider, DDS Social History [...]
--- OUTSIDE RECORDS SUMMARY | 2025-06-18 16:32 | XMS_ITS | Clinical Summary ---
Author Organization [employer] Address [address] [facility] [address] [place] [address] Care Team Providers Care Pepper Cutter Name Role Phone Unavailable Primary Care Provider [...]
== END 2025-06-18 12:56 | disposition home or self-care (01) ==
LOC: HO.HAP 12:55
PROVIDERS: Visit Provider Nurse Practitioner Family
DX: Z46.1 Encounter for fitting and adjustment of hearing aid (principal); H90.11 Conductive hearing loss, unilateral, right ear, with unrestricted hearing on the contralateral side
CPT/HCPCS: V5011; V5020; V5241; V5257

== ENCOUNTER 2025-07-16 07:58 | Outpatient (REF) | payer OTHER, SELFPAY ==
[2025-07-16 10:33] LABS: MANUAL DIFF FLAG NO
[2025-07-16 11:10] LABS: Hematocrit 41.5 % (37.0-47.0); Hemoglobin 13.4 g/dl (12.0-16.0); Imm Gran Abs Auto 0.02 X10*3/uL (0.00-0.03); Imm Gran Pct Auto 0.3 % (0.0-0.4); Lymphocytes Absolute Auto 2.2 X10*3/uL (1.2-4.9); Mean Corpuscular HGB Conc 32.3 g/dl (31.0-35.0); Mean Corpuscular Hemoglobin 27.1 pg (27.0-33.0); Mean Corpuscular Volume 83.8 fL (80.0-98.0); NRBC Abs Auto 0.000 X10*3/uL (0.0-0.012); NRBC Pct Auto 0.0 /100WBC (0.0-0.2); Platelet Count 285 X10*3/uL (160-400); Red Blood Count 4.95 X10*6/uL (4.20-5.50); White Blood Count 6.1 X10*3/uL (4.8-10.8)
[2025-07-16 11:19] LABS: Alanine Aminotransferase 45 U/L (0-31); Albumin Level 4.2 g/dL (3.5-5.0); Alkaline Phosphatase 82 U/L (39-117); Anion Gap 11 (12-20); Aspartate Amino Transferase 32 U/L (5-31); Blood Urea Nitrogen 15 mg/dL (9-16); Calcium 8.7 mg/dL (8.4-10.2); Carbon Dioxide 27 mmol/L (22-29); Chloride 105 mmol/L (96-108); Cholesterol 196 mg/dL (<200); Estimated Glomerular Filt Rate > 60; HDL Cholesterol 50 mg/dL (>40); Potassium 4.1 mmol/L (3.3-5.1); Sodium 139 mmol/L (135-145); Total Protein 6.7 g/dL (6.5-8.0); Triglycerides 119 mg/dL (<150)
[2025-07-16 17:39] LABS: Appearance Urine Clear; Glucose Urine UA Negative (Negative); PH 7.0 (5.0-9.0); Specific Gravity - Urine 1.020 (1.005-1.025)
[2025-07-20 18:29] LABS: Vitamin D 25-OH, D2 <4 ng/mL; Vitamin D 25-OH, D3 37 ng/mL; Vitamin D 25-OH, Total 37 ng/mL (30-100)
== END 2025-07-16 07:59 | disposition home or self-care (01) ==
LOC: HO.HMGCLDS 07:58
PROVIDERS: PCP Nurse Practitioner Family; Visit Provider Nurse Practitioner Family
DX: Z00.00 Encounter for general adult medical examination without abnormal findings (principal)
CPT/HCPCS: 36415; 80053; 80061; 81003; 82306; 84443; 85025

== ENCOUNTER 2025-07-22 09:03 | Outpatient (AMB) | payer OTHER, SELFPAY ==
[2025-07-22 09:07] VITALS: BP 118/62; PULSE 85; RESP 16; O2SAT 100; BMI 41.0
--- NOTE | 2025-07-22 09:07 | A.OFFPC_ITS ---
Vital Signs 07/22/25 09:07 Height 5 ft 1 in Weight 217 lb BMI 41.0 BP 118/62 Blood Pressure Location Lt brachial Position Sitting Respiration 16 Pulse 85 Pulse Source Pulse Oximeter Pulse Oximetry (%) 100 Oxygen Delivery Method Room Air Intake Visit Reasons: Annual Physical PHQ-9 needed. 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 HPI Details History of Present Illness The patient is a 34 year old individual presenting for a physical examination. Recent lab work revealed slightly elevated liver enzymes. The patient denies any associated fevers, chills, blurred vision, chest pain, shortness of breath, abdominal pain, blood in stool, constipation, or diarrhea. The patient receives gynecological care. Health Maintenance The patient presented for a routine physical examination. 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 - Eyes: Denies blurred vision. - Cardiovascular: Denies chest pain. - Respiratory: Denies shortness of breat h. - Gastrointestinal: Denies abdominal alvaro n, blood in stool, constipation, and diarrhea. Physical Exam General: Cooperative, healthy appearing, comfortable, no acute distress and well developed, obese Orientation: Patient oriented x3 Limitations: No limitations Head: Normal to inspection Ears: Hearing grossly normal bilaterally Nose: Normal external nose present Face and sinus: Normal facial exam Eyes: Appearance normal, both eyes and all related structures Neck: Normal visual inspection and Yes full ROM Respiratory: Normal respiratory effort and able to speak in complete sentences. Clear to auscultation bilaterally Cardiovascular: Regular rate and rhythm. Normal S1 and S2, systolic murmur GI: Normal to inspection. Soft to palpation and nontender Skin: No rashes or lesions noted Neuro: Patient oriented x3 Extremities: Normal to inspection Results - Labs: Liver enzymes were noted to be s lightly elevated. Plan 1. Elevated Liver Enzymes A hepatitis screen and an abdominal ultrasound will be ordered to further investigate the elevated liver enzymes. 2. systolic murmur echo ordered Discussion Notes I discussed with the patient that due to slightly elevated liver enzymes on recent labs, I will order a hepatitis screen and an ultrasound of the abdomen for further evaluation. Patient Instructions - You will need to get a blood test to alton barriga for hepatitis. - We will order an ultrasound of your be lly to look at your liver. 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 1. Little interest or pleasure in doing things: not at all 2. Feeling down, depressed, or hopeless: not at all 3. Trouble falling or staying asleep, or sleeping too much: not at all 4. Feeling tired or having little energy: not at all 5. Poor appetite or overeating: not at all 6. Feeling bad about yourself - or that you are a failure or have let yourself or your family down: not at all 7. Trouble concentrating on things, such as reading the newspaper or watching television: not at all 8. Moving or speaking so slowly that other people could have noticed. Or the opposite - being so fidgety or restless that you have been moving around a lot more than usual: not at all 9. Thoughts that you would be better off or of hurting yourself in some way: not at all Total score: 0 Depression Screening Interpretation: Negative Depression Screening Done: Yes 01963 - PHQ-9 Billing: Yes Source: Developed by Drs. Tyrone Chavarria, Margarita Yusuf, Dre Espana and colleagues, with an educational cecily from [employer]. Thrive Questionnaire Date Thrive assessed: 10/03/23 I am a: Patient What is your living situation today?: I have a steady place to live Within the past 12 months, did the food you bought not last and you didn't have the money to get more?: Never true Within the past 12 months, did you worry whether your food would run out before you got money to buy more?: Never true Do you have trouble paying for medicines?: No Do you have trouble getting transportation to medical appointments?: No Do you have trouble paying your heating and electricity bill?: No Do you have trouble taking care of your child, family member or friend?: No Do you have trouble with day-to-day activities such as bathing, preparing meals, shopping, managing finances, etc.?: No Are you currently unemployed and looking for a job?: No Are you interested in more education?: No Please select the resources that you would like help with: None Currently or been in a relationship where the following occur: No concerns reported THRIVE Score: 0 AUDIT C Alcohol Use Questionnaire (AUDIT-C) 1. How often do you have a drink containing alcohol?: 2-4 times a month 2. How many drinks containing alcohol do you have on a typical day when you are drinking?: 1 or 2 3. How often do you have six or more drinks on one occasion?: Never Total Score: 2 ANNALEE-7 AMB Questionnaire ANNALEE-7 Date ANNALEE - 7 assessed: 07/22/25 Feeling nervous, anxious, or on edge: 0 = Not at all Not being able to stop or control worryin = Not at all Worrying too much about different things: 0 = Not at all Trouble relaxin = Not at all Being so restless that it is hard to sit still: 0 = Not at all Becoming easily annoyed or irritable: 0 = Not at all Feeling afraid as if something awful might happen: 0 = Not at all Total ANNALEE-7 score (0-4 normal; 5-9 mild; 10-14 moderate; 15-21 severe): 0 Source: Developed by Drs. Tyrone Chavarria, Margarita Yusuf, Dre Espana and colleagues, with an educational cecily from [employer]. ANNALEE-7 Assessment Billing ANNALEE-7 Assessment Tool: ANNALEE-7 Assessment 37808 Physical exam (Primary Care) Vital Signs: Last Vital Signs Pulse 85 07/22/25 09:07 Resp 16 07/22/25 09:07 BP 118/62 07/22/25 09:07 Pulse Ox 100 07/22/25 09:07 Oxygen Delivery Method Room Air 07/22/25 09:07 BMI result Body Mass Index 41.0 Tobacco/Smoking Status: Tobacco use Status Tobacco use date assessed 07/22/25 07/22/25 09:11 Patient Tobacco Use Status Never used Tobacco 07/22/25 09:11 e-Cigarette/Vaping Use Never Used 07/22/25 09:11 PHQ-9: PHQ-9 Score PHQ-9: Total score 0 07/22/25 09:11 Depression Screening Interpretation: Negative Thrive Assessment: Date of Thrive Assessment Date Thrive assessed 10/03/23 07/22/25 09:11 Currently or been in a relationship where the following occur: No concerns reported Coding Level of Care Code Est Pt Level 3 (08953) Est Pt Prev Care 18-39y(02501) Diagnoses Elevated liver enzymes R74.8 Systolic murmur R01.1 Encounter for routine adult physical exam with abnormal findings Z00. Additional Codes ANNALEE-7 Assessment Billing - ANNALEE-7 Assessment Tool: ANNALEE-7 Assessment 37329 ([id number]) PHQ-9 - 11438 - PHQ-9 Billing: Yes ([id number]) Assessment & Plan Assessment & Plan (1) Elevated liver enzymes: Code(s): R74.8 - Abnormal levels of other serum enzymes Category: Medical (2) Systolic murmur: Code(s): R01.1 - Cardiac murmur, unspecified Category: Medical (3) Encounter for routine adult physical exam with abnormal findings: Code(s): Z00.01 - Encounter for general adult medical examination with abnormal findings Category: Medical Plan . Orders: Orders Comprehensive [place]. Panel Fast 07/16/25 Z00.00 - Encounter for general adult medical examination without abnormal findings TSH reflex Free T4 07/16/25 Z00.00 - Encounter for general adult medical examination without abnormal findings Lipid Panel 07/16/25 Z00.00 - Encounter for general adult medical examination without abnormal findings Vitamin D 25-OH (D2 and D3) 07/16/25 Z00.00 - Encounter for general adult medical examination without abnormal findings Hepatitis A,B,C Profile Today R74.8 - Abnormal levels of other serum enzymes US abdomen complete Today R74.8 - Abnormal levels of other serum enzymes Complete Blood Count Auto Diff 07/16/25 Z00.00 - Encounter for general adult medical examination without abnormal findings UA CC w/rflx Micro + Cult 07/16/25 Z00.00 - Encounter for general adult medical examination without abnormal findings CA echo transthoracic complete Today R01.1 - Cardiac murmur, unspecified
--- OUTSIDE RECORDS SUMMARY | 2025-07-22 09:57 | XMS_ITS | Encounter Summary ---
Author Organization [employer] Address [address] [place] [address] Care Team Providers Care Technical Service Engineer Name Role Phone Unavailable Primary Care Provider Unavailabl e Encounter Details Date Type Department Care Team (Latest Contact Info) Description 06/06/2019 Abstract [facility] CONVERSIONS Dental, Provider, DDS Social History Tobacco [...]
--- OUTSIDE RECORDS SUMMARY | 2025-07-22 09:57 | XMS_ITS | Clinical Summary ---
Author Organization [employer] Address [address] [facility] [address] [place] [address] Care Team Providers Care Broom Stitcher Name Role Phone Unavailable Primary Care Provider [...] 2018 HPV/Cotest 2018 COVID-19 Vaccine (1 - 2024-2 6 season) 2025 Influenza Vaccine (#1) 2025 Zoster [...]
== END 2025-07-22 10:30 | disposition home or self-care (01) ==
LOC: HO.HMCC 09:04
PROVIDERS: PCP Nurse Practitioner Family; Visit Provider Nurse Practitioner Family
DX: Z00.01 Encounter for general adult medical examination with abnormal findings (principal); R74.8 Abnormal levels of other serum enzymes; R01.1 Cardiac murmur, unspecified; Z23 Encounter for immunization

== ENCOUNTER → 2025-07-22 09:03 | Outpatient (BNVA) | payer OTHER, SELFPAY | PROVIDERS: PCP Nurse Practitioner Family; Visit Provider Nurse Practitioner Family | DX: Z00.01 Encounter for general adult medical examination with abnormal findings (principal); R74.8 Abnormal levels of other serum enzymes; R01.1 Cardiac murmur, unspecified; Z23 Encounter for immunization | CPT/HCPCS: 90471; 90656; 96127; 99212; 99395 ==

== ENCOUNTER 2025-07-23 08:07 | Outpatient (REF) | payer OTHER, SELFPAY ==
--- OUTSIDE RECORDS SUMMARY | 2025-07-23 08:20 | XMS_ITS | Encounter Summary ---
Author Organization [employer] Address [address] [place] [address] Care Team Providers Care Educational Institution Curator Name Role Phone Unavailable Primary Care Provider [...]
--- OUTSIDE RECORDS SUMMARY | 2025-07-23 08:20 | XMS_ITS | Data Portability ---
Author Organization [place] - [facility], Allergy Address [address] [facility] [address] [place] [phone] Care Team Providers Care Jacquard Loom Card Changer Name Role Phone MARYJANEGREGNEL Duarte Primary Care Provider [phone] Assessment Encounter Date Assessment Date Assessment LastModified [...] ear particularly when submerging the head underwater. [email or web address] Not available 02/11/2025 16:09:28 04/25/2025 04/25/2025 CAT [...] of her audiogram and a list of [facility] hearing aid provider so that she can pursue this at her convenience. [email or web address] Not available 04/25/2025 15:15:56 Plan of Treatment [...] contr ast No observ ation record ed. [facility] [address] [facility] [address], [place], [address], 06/03/2025 13:19:19 Result Notes None recorded. Problems Name Problem SNOMED Code Status Onset Date Resolution Date Notes Provider Name and Address Organization Details Recorded Time Mixed conducti ve and sensorin eural hearing loss of right ear 25980022295 105 Active 2015 Mixed conducti ve and sensorin eural hearing loss, unilater al, right ear, with unrestri cted hearing on the contrala teral side; Note: Date Diagnose d: 6 10:05 AM (H90.71) Not Available [facility] 4 02:13:02 Benign neoplasm of lip, oral cavity and pharynx 719629199 Active 2015 Benign neoplasm of lip, oral cavity, and pharynx; Note: Date Diagnose d: 6 12:03 PM (210) Not Available [facility] 4 02:13:11 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 , bilatera l; Note: Date Diagnose d: 6 10:23 AM (H74.03) Not Available [facility] 4 02:15:25 Conducti ve hearing loss 93941811 Active 2015 Conducti ve hearing loss, unilater al, right ear, with unrestri cted hearing on the contrala teral side; Note: Date Diagnose d: 6 10:23 AM (H90.11) Not Available [facility] 4 02:14:53 Lesion of oral mucosa 71048499179 95455 Completed 201503/30/2024 Other lesions of oral mucosa; Note: Date Diagnose d: 6 8:34 AM (K13.79) Not Available [facility] 4 02:14:04 Benign neoplasm of mouth region 830420223 Active 2015 Benign neoplasm of lip, oral cavity, and pharynx: Oral cavity NOS; Note: Date Diagnose d: 6 8:35 AM (210.4) Benign neoplasm of other parts of mouth; Note: Date Diagnose d: 6 12:04 PM (D10.39) ; Start Date : 04/19/20 16 Not Available [facility] 4 02:13:02 Partial loss of ear ossicles 29192514 Active 2015 Partial loss of ear ossicles , right ear; Note: Date Diagnose d: 6 12:18 PM (H74.321 ) Not Available [facility] 4 02:15:14 Choleste atoma of right mastoid 87487960784 97659 Active 2017 Choleste atoma of mastoid, right ear; Note: Date Diagnose d: 06/07/20 18 10:27 AM (H71.21) Not Available [facility] 4 02:14:13 Follow-u p visit Active 2017 Medical surveill catrachita ochoa complete d treatmen t; Note: Date Diagnose d: 06/14/20 18 9:50 AM (Z09) Not Available [facility] 4 02:13:11 Disorder of right Eustachi an tube 49234067889 48692 Active 2018 Other specifie d disorder s of Eustachi an tube, right ear; Note: Date Diagnose d: 11/30/2018 10:53 AM (H69.81) Not Available [facility] 4 02:13:55 Mixed conducti ve and sensorin eural hearing loss of right ear with normal hearing on left side 9376901527 Active 2024 DMITRY REAL [address] [place] [address],[place] [address], [facility] [place], [address] , [facility] - [facility] 5 15:44:28 Adhesive otitis media of right middle ear 14857897731 56378 Active 2024 FRANCOIS BETHEA MD [address] [place] [address],[place] [address], [facility] [place], [address] , [facility] 5 16:05:02 Problem Notes None recorded. Procedures Surgical History Date Name Laterality Status Provider Name and Address Organization Details Recorded Time 5 CT temporal bones - Xoran completed FRANCOIS BETHEA MD [address] [place] [address],[place] [address], [place], [address], [facility] 04/25/2025 14:25:27 5 Comp Audio with Tymps - 66949 & 96913 completed DMITRY REAL [address] [place] [address],[place] [address], [place], [address], [facility] 02/11/2025 15:43:39 Imaging Results None recorded. Procedure Notes None recorded. Medical Equipment None Reported. Allergies Allergen ID Allergen Name Allergen Category Reaction Reaction Severity Criticality Documentation Date Start Date Code Code System Note Provider Name and Address Organization Details Recorded Time 302071 ethinyl estradiol / levonorge strel medicatio n Not available Not available Not available 02/11/2025 15630 8 RxNorm Janet vidal [place] - [facility] 15:26:29 Medications Name Sig Start Date [...] mg tablet 02/10 completed Medicati on ID: [id number] D uration Value: 30 Brand Name: cetirizi ne Send Method: E-Prescr ibed Sub s Allowed: subs OK Speci al Instruct ion: TK 1 T PO QD Medic ationGen ericName : cetirizi ne Not Available Not Available Not Available hydrocodo ne 5 mg-acetam inophen 325 mg tablet 02/10 completed Medicati on ID: [id number] D uration Value: 7 Brand Name: hydrocod one-acet aminophe n Send Method: E-Prescr ibed Sub s Allowed: subs OK Speci al Instruct ion: TK 1 TO 2 TS PO Q 6 H PRN P Medica tionGene ricName: hydrocod one-acet aminophe n Not Available Not Available Not Available Ciloxan 0.3 % eye drops 02/10 completed Medicati on ID: [id number] D uration Value: 10 Prescri bed By Name: JACKSON Barrera nd Name: Ciloxan Send Method: E-Prescr ibed Sub s Allowed: subs OK Speci al Instruct ion: Instill 4 drops twice a day into the affected ear Medi cationGe nericNam e: Ciloxan Not Available Not Available Not Available ofloxacin 0.3 % ear drops 3 drop 02/10 completed Medicati on ID: [id number] D uration Value: 14 Prescri bed By [...] single dose 02/10 completed Medicati on ID: [id number] D uration Value: 1 Prescri bed By [...] mg tablet 02/10 completed Medicati on ID: [id number] D uration Value: 28 Brand Name: Levora-2 [...] vidal [place] - [facility] 02/11/2025 15:26:40 How Many Years Have You Consumed Alcohol? 0 [email or web address] Information not available 02/11/2025 What Type Of Dewer Do You Use? [employer]care[employer]chool [email or web address] Information not available 02/11/2025 How Many Alcoholic Drinks Do You Consume Per Day On Average? 0 [email or web address] Information not available 02/11/2025 Do You Have Any Pets? Yes [email or web address] Information not available 02/11/2025 Are You Passively Exposed To Smoke? No [email or web address] Information not available 02/11/2025 Are There Any Smokers In Your House? No [email or web address] Information not available 02/11/2025 Sex: Unknown Functional Status Question Answer Note LastModified by Organization Details LastModified Time How many times per week do you consume alcohol? 1-2 times per week [email or web address] Information not available 02/11/2025 Do you use any illicit or recreational drugs? No [email or web address] Information not available 02/11/2025 Do you or have you ever used any other forms of tobacco or nicotine? No [email or web address] Information not available 02/11/2025 What is your level of alcohol consumption? Occasional [email or web address] Information not available 02/11/2025 What type of noise exposure are you exposed to? noExposureToExcessiveNoise [email or web address] Infor mation not available 02/11/2025 Mental Status None recorded. Family History Nothing Reported. Medical History Condition Response Allergies/Hayfever N Heart Problems N Anxiety Y Tonsil Infections N Emphysema N Migraines N Thyroid Problems N COPD N Depression N Developmental Delay N Glaucoma N Nasal or Sinus Problems Y Anemia N Immune System Disorder N Anesthesia Complications Y Heart Attack (PR) N Other Skin Condition N Diabetes N Rhinitis N Bleeding Disorder N Food Allergy N Hearing Loss Y Arthritis N Hyperlipidemia N Cancer N Stroke N Dementia N Nasal polyps N Asthma N Sleep Disorder N High Cholesterol N GERD/Reflux N Liver Disease N Headaches Y Fibromyalgia N Hypertension N Speech Delay N Kidney Disease N Gynecological HistoryNo gynecological history recorded. Obstetrics History GPAL:G 0 P 0 0 0 0 Past Encounters Encounter ID Performer Location Encounter Start Date Encounter Closed Date Diagnosis/Indication Diagnosis SNOMED-CT Code Diagnosis ICD10 Code Diagnosis IMO Codes Diagnosis Note [id number] FRANCOIS BETHEA MD [facility] [address] [address] 02/11/2025 15:03:26 02/11/2025 16:22:59 Mixed conductive and sensorineural hearing loss of right ear with normal hearing on left side 4827984392 H90.71 [id number] Audiologic al evaluation results: 02/11/2025 Right ear: Moderate rising to mild sloping to moderate mixed hearing loss with excellent word recognitio n. Left ear: Normal hearing with excellent word recognitio n. Tympanomet ry: Right Ear:Type A Left Ear:Type A Partial lo ss of ear ossicles 82320749 H74.321 Adhesive o titis media of right middle ear 8821198413 285040 H74.11 [id number] FRANCOIS BETHEA MD [facility] [address] [address] 04/25/2025 13:55:23 04/25/2025 15:14:31 Mixed conductive and sensorineural hearing loss of right ear with normal hearing on left side 0318905982 H90.71 38895249 Partial lo ss of ear ossicles 79019361 H74.321 Adhesive o titis media of right middle ear 1635817143 889534 H74.11 8022305 Health Concerns Section Related Observation LastModified by Organization Detai ls LastModified Time None Recorded Concern Status LastModified by Organization Details LastModified Time None Recorded Advance Directives Directive None Recorded Payers Insurance Date Sequence Insurance Name Policy Number Policy Fernando Covered Member ID Fernando Member ID Guarantor Name 12/18/2024 1 [facility] NET PLAN (MEDICAID HMO) Zenia Katz [id number] Zenia Estrada 04/22/2025 1 [facility] NET PLAN (MEDICAID HMO) CAMELIA Estrada [id number] Zeina Estrada Notes Date Note Type Note Provider [...] as the left ear. FRANCOIS BETHEA MD [address] [place] [address], [phone], [place] - [facility] 02/11/2025 16:09:45 04/25/2025 text/html Patient who [...] issues with recurrent infection. FRANCOIS BETHEA MD [address] [place] [address],[address], [address], [facility] 04/25/2025 15:16:49 OBGyn Episode No OBEpisode recorded.
--- OUTSIDE RECORDS SUMMARY | 2025-07-23 08:20 | XMS_ITS | Clinical Summary ---
Author Organization [employer] Address [address] [facility] 7t [place] [address] Care Team Providers Care Crystal Grower Name Role Phone Unavailable Primary Care Provider [...]
--- OUTSIDE RECORDS SUMMARY | 2025-07-23 08:20 | XMS_ITS | Continuity of Care Document ---
Author Organization [place] - [facility], [facility] Address [address] [place] [address] Care Team Providers Care Silver Solution Mixer Name Role Phone NEL LEMONS Primary Care Provider Assessment Encounter Date Assessment Date Assessment LastModified by Organization Details LastModified Time 04/25/2025 04/25/2025 CAT scan of the temporal [...] of her audiogram and a list of [facility] hearing aid provider so that she can pursue this at her convenience. [email or web address] Not available 04/25/2025 15:15:56 Plan of Treatment Reminders Order Date Submit Date Provider Last Modified By Organization Details Last Modified Time Details Appointments Establish ed 10 2025 09:40A M FRANCOIS BETHEA MD Not available Not available Not available Lab None recorded. Referral None recorded. Procedures None recorded. Surgeries None recorded. Imaging None recorded. Medication Orders None recorded. Patient TargetsNo targets recorded. Patient InstructionsNo instructions recorded. Reason for Referral None Reported. Results Created Date Observation Date Name Description Value Unit Range Abnormal Flag Note LastModifiedBy Organization Detail LastModifiedTime 05/30/2004/25/2025 CT, tempo ral bone, w/o contr ast No observ ation record ed. [id number] [facility] [address], [place], [address], 06/03/2025 13:19:19 Result Notes None recorded. Problems Name Problem SNOMED Code Status Onset Date Resolution Date Notes Provider Name and Address Organization Details Recorded Time Mixed conducti ve and sensorin eural hearing loss of right ear 42282562023 105 Active 2015 Mixed conducti ve and sensorin eural hearing loss, unilater al, right ear, with unrestri cted hearing on the contrala teral side; Note: Date Diagnose d: 6 10:05 AM (H90.71) Not Available [facility] 4 02:13:02 Benign neoplasm of lip, oral cavity and pharynx 469487522 Active 2015 Benign neoplasm of lip, oral cavity, and pharynx; Note: Date Diagnose d: 6 12:03 PM (210) Not Available [facility] 4 02:13:11 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 , bilatera l; Note: Date Diagnose d: 6 10:23 AM (H74.03) Not Available [facility] 4 02:15:25 Conducti ve hearing loss 50183813 Active 2015 Conducti ve hearing loss, unilater al, right ear, with unrestri cted hearing on the contrala teral side; Note: Date Diagnose d: 6 10:23 AM (H90.11) Not Available [facility] 4 02:14:53 Lesion of oral mucosa 05711820154 91760 Completed 201503/30/2024 Other lesions of oral mucosa; Note: Date Diagnose d: 6 8:34 AM (K13.79) Not Available [facility] 4 02:14:04 Benign neoplasm of mouth region 745374613 Active 2015 Benign neoplasm of lip, oral cavity, and pharynx: Oral cavity NOS; Note: Date Diagnose d: 6 8:35 AM (210.4) Benign neoplasm of other parts of mouth; Note: Date Diagnose d: 6 12:04 PM (D10.39) ; Start Date : 04/19/20 16 Not Available [facility] 4 02:13:02 Partial loss of ear ossicles 14393651 Active 2015 Partial loss of ear ossicles , right ear; Note: Date Diagnose d: 6 12:18 PM (H74.321 ) Not Available [facility] 4 02:15:14 Choleste atoma of right mastoid 88080433952 39383 Active 2017 Choleste atoma of mastoid, right ear; Note: Date Diagnose d: 06/07/20 18 10:27 AM (H71.21) Not Available [facility] 4 02:14:13 Follow-u p visit Active 2017 Medical surveill ance followin g complete d treatmen t; Note: Date Diagnose d: 06/14/20 18 9:50 AM (Z09) Not Available [facility] 4 02:13:11 Disorder of right Eustachi an tube 16996550645 07735 Active 2018 Other specifie d disorder s of Eustachi an tube, right ear; Note: Date Diagnose d: 11/30/2018 10:53 AM (H69.81) Not Available [facility] 4 02:13:55 Mixed conducti ve and sensorin eural hearing loss of right ear with normal hearing on left side 1819512871 Active 2024 DMITRY REAL [address] [address], [place], [address] , [facility] - [facility] 5 15:44:28 Adhesive otitis media of right middle ear 08375418469 23483 Active 2024 FRANCOIS BETHEA MD [address] [address], [facility] [place], [address] , [facility] 5 16:05:02 Problem Notes None recorded. Procedures Surgical History Date Name Laterality Status Provider Name and Address Organization Details Recorded Time 5 CT temporal bones - Xoran completed FRANCOIS BETHEA MD [address] [facility],[address] [address], [place], [address], [facility] 04/25/2025 14:25:27 5 Comp Audio with Tymps - 32582 & 26614 completed DMITRY REAL [address] [facility],[address] [address], [place], [address], [facility] 02/11/2025 15:43:39 Imaging Results None recorded. Procedure Notes None recorded. Medical Equipment None Reported. Allergies Allergen ID Allergen Name Allergen Category Reaction Reaction Severity Criticality Documentation Date Start Date Code Code System Note Provider Name and Address Organization Details Recorded Time 275961 ethinyl estradiol / levonorge strel medicatio n Not available Not available Not available 02/11/2025 26832 8 RxNorm Janet vidal [facility] 5 15:26:29 Medications Name Sig Start Date Stop [...] mg tablet 02/10 completed Medicati on ID: [id number] D uration Value: 30 Brand Name: cetirizi ne Send Method: E-Prescr ibed Sub s Allowed: subs OK Speci al Instruct ion: TK 1 T PO QD Medic ationGen ericName : cetirizi ne Not Available Not Available Not Available hydrocodo ne 5 mg-acetam inophen 325 mg tablet 02/10 completed Medicati on ID: [id number] D uration Value: 7 Brand Name: hydrocod one-acet aminophe n Send Method: E-Prescr ibed Sub s Allowed: subs OK Speci al Instruct ion: TK 1 TO 2 TS PO Q 6 H PRN P Medica tionGene ricName: hydrocod one-acet aminophe n Not Available Not Available Not Available Ciloxan 0.3 % eye drops 02/10 completed Medicati on ID: [id number] D uration Value: 10 Prescri bed By Name: Gricelda Dubois JACKSON Brown nd Name: Ciloxan Send Method: E-Prescr ibed Sub s Allowed: subs OK Speci al Instruct ion: Instill 4 drops twice a day into the affected ear Medi cationGe nericNam e: Ciloxan Not Available Not Available Not Available ofloxacin 0.3 % ear drops 3 drop 02/10 completed Medicati on ID: [id number] D uration Value: 14 Prescri bed By [...] single dose 02/10 completed Medicati on ID: [id number] D uration Value: 1 Prescri bed By [...] mg tablet 02/10 completed Medicati on ID: [id number] D uration Value: 28 Brand Name: Levora-2 [...] vidal [place] - [facility] 02/11/2025 15:26:40 How Many Years Have You Consumed Alcohol? 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 0 [email or web address] Information not available 02/11/2025 Do You Have Any Pets? Yes [email or web address] Information not available 02/11/2025 Are You Passively Exposed To Smoke? No [email or web address] Information not available 02/11/2025 Are There Any Smokers In Your House? No [email or web address] Information not available 02/11/2025 Sex: Unknown Functional Status Question Answer Note LastModified by Organization Details LastModified Time How many times per week do you consume alcohol? 1-2 times per week [email or web address] Information not available 02/11/2025 Do you use any illicit or recreational drugs? No [email or web address] Information not available 02/11/2025 Do you or have you ever used any other forms of tobacco or nicotine? No [email or web address] Information not available 02/11/2025 What is your level of alcohol consumption? Occasional [email or web address] Information not available 02/11/2025 What type of noise exposure are you exposed to? noExposureToExcessiveNoise [email or web address] Infor mation not available 02/11/2025 Mental Status None recorded. Family History Nothing Reported. Medical History Condition Response Allergies/Hayfever N Heart Problems N Anxiety Y Tonsil Infections N Emphysema N Migraines N Thyroid Problems N COPD N Depression N Developmental Delay N Glaucoma N Nasal or Sinus Problems Y Anemia N Immune System Disorder N Anesthesia Complications Y Heart Attack (HI) N Other Skin Condition N Diabetes N [...] ICD10 Code Diagnosis IMO Codes Diagnosis Note [id number] FRANCOIS BETHEA MD [facility] [address] [address] 04/25/2025 13:55:23 04/25/2025 15:14:31 Mixed conductive and sensorineural hearing loss of right ear with normal hearing on left side 1540530758 H90.71 [id number] Partial lo ss of ear ossicles 02836650 H74.321 Adhesive o titis media of right middle ear 5871576123 313610 H74.11 [id number] Health Concerns Section Related Observation LastModified by Organization Detai ls LastModified Time None Recorded Concern Status LastModified by Organization Details LastModified Time None Recorded Payers Encounter Date Sequence Insurance Name Policy Number Policy Fernando Covered Member ID Fernando Member ID Guarantor Name 04/25/2025 1 [facility] NET PLAN (MEDICAID HMO) CAMELIA Estrada [id number] Zenia Estrada Notes Date Note Type Note Provider Name and Address Organization Details Recorded Time 04/25/2025 text/html Patient who had first stage cholesteatoma surgery in 2018 but was lost to follow-up thereafter. Patient [...] issues with recurrent infection. FRANCOIS BETHEA MD [address] [place] [address], [address], [facility] - [facility] 04/25/2025 15:16:49 OBGyn Episode No OBEpisode recorded.
[2025-07-23 11:11] LABS: HBc Num1 0.07 S/CO (0.00-0.79); HBsAGNum1 0.37 S/CO (0.00-0.99); Hepatitis A Antibody IgM 0.12 Index (0-0.79); Hepatitis B Surface Antigen Negative (Negative); ~HepC Num1 0.10 S/CO (0.00-0.79); ~Hepatitis A Antibody IgM Nonreactive (Nonreactive); ~Hepatitis B Surface Antibody REACTIVE (Nonreactive); ~Hepatitis C Antibody Nonreactive (Nonreactive)
== END 2025-07-23 08:08 | disposition home or self-care (01) ==
LOC: HO.HMGCLDS 08:07
PROVIDERS: PCP Nurse Practitioner Family; Visit Provider Nurse Practitioner Family
DX: Z11.59 Encounter for screening for other viral diseases (principal); R74.8 Abnormal levels of other serum enzymes
CPT/HCPCS: 36415; 86704; 86706; 86709; 86803; 87340